=== PATIENT | male | born 1935 | race Caucasian/White ===

== ENCOUNTER 2024-11-16 22:47 | Emergency (ER) | payer OTHER, SELFPAY ==
[2024-11-16 22:49] VITALS: BP 169/96
[2024-11-16 23:06] LABS: % Basophils 0.2 % (0-2); % Eosinophils 0.2 % (0-6); % Immature Granulocytes 0.5 % (0-0.5); % Monocytes 3.2 % (1.7-9.3); % Neutrophils 91.9 % (42.2-75.2); Absolute Immature Granulocytes 0.1 10^3/uL (0-0.05); Absolute Lymphocytes 0.4 10^3/uL (1.2-3.4); Absolute Monocytes 0.3 10^3/uL (0.1-0.6); Absolute Neutrophils 9.9 10^3/uL (1.4-6.5); Hematocrit 44.2 % (39.0-52.0); Hemoglobin 14.3 g/dL (13.0-18.0); Mean Corp Hgb Conc. 32.4 g/dL (33.0-37.0); Mean Corpuscular Hgb 32.4 pg (27.0-31.0); Mean Corpuscular Volume 100.2 fL (80.0-94.0); Mean Platelet Volume 9.2 fL (7.4-10.4); Nucleated Red Blood Cells % 0 % (-); Platelet Count 223 10^3/uL (130-400); Red Blood Cell Count 4.41 10^6/uL (4.70-6.10); Red Cell Dist. Width 13.9 % (11.5-14.5); White Blood Cell Count 10.8 10^3/uL (4.8-10.8)
[2024-11-16 23:27] LABS: AST (SGOT) 85 U/L (17-59); Albumin 5.1 g/dl (3.5-5.0); Alkaline Phosphatase 161 U/L (38-126); Blood Urea Nitrogen 22 mg/dl (9-20); Calcium 9.7 mg/dl (8.4-10.2); Carbon Dioxide 18 mmol/L (22-30); Chloride 104 mmol/L (98-107); Glucose 274 mg/dl (70-99); Sodium 143 mmol/L (135-145); Total Bilirubin 2.3 mg/dl (0.2-1.3); Total Protein 8.3 g/dl (6.3-8.2); eGFR 48.04
[2024-11-16 23:29] LABS: Lipase 104 U/L (23-300)
[2024-11-16 23:48] LABS: ALT (SGPT) 61 U/L (0-50)
--- NOTE | 2024-11-17 01:07 | ED.GENMED ---
History of Present Illness
General
Chief Complaint: Abdominal Pain
Source: patient, records, family, previous radiology exam and previous hospital records
Exam Limitations: none
Time Seen by Provider: 11/17/24 00:42
Nursing documentation reviewed up to this point in time: agreed with
History of Present Illness
History of Present Illness:
89-year-old male presents with abdominal pain nausea vomiting diarrhea onset around 3-4 this afternoon described as crampy upper abdominal pain, no blood in his stool or vomit, no fever or chills, said his gallbladder out, appendicitis, denies any
problem urinating, he had meatballs for lunch
Past History
Past History
ED Past Medical History: Other (Ulcer); Negative Asthma, HTN, Hypercholesterolemia or NIDDM
ED Past Surgical History: Appendectomy, Orthopedic and Urological (Prostatectomy for Prostate CA)
Social History
Tobacco: Former smoker
Alcohol: None
Drug: None
Personal:
Living: with family
Employment: Retired
Family History
Family History: Other
Phy Exam
Physical Exam
Physical Exam:
Physical Exam
General: no apparent distress, not acutely ill
Neck: Lips are dry
Heart: s1/s2 regular rate and rhythm, no murmur. equal radial pulses.
Lungs: no acute respiratory distress. clear bilaterally
Abdomen: Mild diffuse tenderness no guarding or rebound
Neuro: alert and oriented. no focal neurological deficits
Skin: no rash
Psychiatric: well kept. interactive and cooperative
Extremities: no edema.
Course
Orders/Labs/Results
Orders:
Orders
11/16/24 22:59
Complete Blood Count/With Diff Urgent
Comprehensive Metabolic Panel Urgent
Lipase Urgent
11/17/24 01:01
Electrocardiogram (*1) Stat
Reason for Study: Abdominal Pain
EKG- Treatment ONCE
IV Insert/Care/Rem.- Treatment PRN
0.9% Sodium Chloride 1000 ml [Nss] 1,000 ml IV BOLUS
Ondansetron Injectable [Zofran] 4 mg IV NOW STA
Prochlorperazine [Compazine] 10 mg IV NOW STA
11/17/24 01:16
Troponin I Urgent
Abnormal Lab Results
11/16/24
22:59
RBC 4.41 L 10^6/uL
(4.70-6.10)
MCV 100.2 H fL
(80.0-94.0)
MCH 32.4 H pg
(27.0-31.0)
MCHC 32.4 L g/dL
(33.0-37.0)
Abs Immat Gran (auto) 0.1 H 10^3/uL
(0-0.05)
Absolute Neuts (auto) 9.9 H 10^3/uL
(1.4-6.5)
Absolute Lymphs (auto) 0.4 L 10^3/uL
(1.2-3.4)
Neutrophils % 91.9 H %
(42.2-75.2)
Lymphocytes % 4.0 L %
(20.5-51.1)
Carbon Dioxide 18 L mmol/L
(22-30)
BUN 22 H mg/dl
(9-20)
Creatinine 1.4 H mg/dL
(0.7-1.3)
Glucose 274 H mg/dl
(70-99)
Total Bilirubin 2.3 H mg/dl
(0.2-1.3)
AST 85 H U/L
(17-59)
ALT 61 H U/L
(0-50)
Alkaline Phosphatase 161 H U/L
(38-126)
Total Protein 8.3 H g/dl
(6.3-8.2)
Albumin 5.1 H g/dl
(3.5-5.0)
11/16/24 22:59
11/16/24 22:59
Vital Signs
Initial and Last Documented VS:
Initial Vital Signs
Temp Pulse Resp BP Pulse Ox
97.6 F 102 18 169/96 99
11/16/24 22:49 11/16/24 22:49 11/16/24 22:49 11/16/24 22:49 11/16/24 22:49
Last Documented Vital Signs
Temp Pulse Resp BP Pulse Ox
97.6 F 102 18 169/96 99
11/16/24 22:49 11/16/24 22:49 11/16/24 22:49 11/16/24 22:49 11/16/24 22:49
MDM/Problems Addressed
Differential Diagnosis Includes:
Enteritis norovirus Food poisoning colitis less likely ACS or obstruction
MDM/Problems Addressed:
Abdominal pain nausea vomiting diarrhea
Chronic conditions affecting care: DM and Previous abdomnial surgery
Acute Exacerbation and/or Progression of Chronic Illness: DM and Previous abdomnial surgery
*Critical Care Note
Total Time (30-74mins, 75-104mins- exclusive of procedures): Not Applicable
Update Note
Update Note:
Update labs are noted he is only been sick for few hours, did eat meatballs, he is status post cholecystectomy, will start on IV fluids check EKG troponin antiemetics PPI serial abdominal exams
245, patient states he is feeling better his abdomen is soft and nontender he is anxious for discharge will discharge on bland diet Zofran PPI clearly instructed return if worsening symptoms
ED Attending Note
-
Portions of this chart may have been created with voice recognition software.� Occasional wrong word or��sound alike� substitutions may have occurred due to the inherent limitations of voice recognition software.
Discharge Plan
Departure
Patient Disposition: Home (Routine Discharge)
Date of Disposition: 11/17/24
Time of Disposition: 02:42
Patient with high blood pressure during this ER visit?: No
Condition: Good
Discharge Problem:
Vomiting, Diarrhea
Instructions: Diarrhea in teens and adults, Constipation, Adult (DC), Nausea and Vomiting, Adult (DC)
Prescriptions:
New
ondansetron 4 mg tablet,disintegrating
4 mg PO Q8H PRN (Reason: nausea and vomiting) Qty: 14 0RF
pantoprazole [Protonix] 40 mg tablet,delayed release (DR/EC)
40 mg PO DAILY Qty: 20 0RF
No Action
Jardiance 10 MG tablet
10 mg PO DAILY Qty: 30 0RF
pantoprazole 40 MG tablet,delayed release (DR/EC)
40 mg PO DAILY Qty: 30 0RF
pravastatin 40 MG tablet
40 mg PO DAILY
furosemide 20 MG tablet
20 mg PO DAILY
aspirin 81 MG tablet,delayed release (DR/EC)
81 mg PO DAILY Qty: 30 0RF
tramadol 50 mg tablet
50 mg PO TID PRN (Reason: whitney) Qty: 10 0RF
diphenhydramine HCl 25 mg capsule
25 mg PO HS PRN (Reason: sleep) Qty: 7 0RF
Referrals:
Zachary Arrington DO [Family Provider] - Next open appointment
Activity Restrictions/Additional Instructions:
Return to the ER for worsening symptoms or any other concerns
Interventions
Interventions:
*Risk Screen - Suicide Last Done: 11/16/24 22:49
*General Assessment Last Done: 11/16/24 22:49
*Neglect/Abuse Screening Last Done: 11/16/24 22:49
Discharge Date and Time
Print Language: MAORI
[2024-11-17] MEDS: NSS 1000 IV (01:15)
[2024-11-17] MEDS: ZOFRAN 4 MG IV (01:15)
[2024-11-17] MEDS: COMPAZINE 10 MG IV (01:15)
[2024-11-17 01:51] LABS: Troponin I < 0.012 ng/ml
[2024-11-17 02:00] VITALS: BP 164/78
== END 2024-11-17 02:55 | disposition home or self-care (01) ==
LOC: EMR 22:47
PROVIDERS: Emergency Medicine; EMERGENCY PHYSICIAN Emergency Medicine; FAMILY PHYSICIAN Family Medicine
DX: R11.2 Nausea with vomiting, unspecified (principal); R19.7 Diarrhea, unspecified; Z87.891 Personal history of nicotine dependence
CPT/HCPCS: 99284; 96374; 96375; 96361; 80053; 83690; 84484; 85025; 93005

== ENCOUNTER 2025-01-03 16:19 | Inpatient (IN) | payer OTHER, SELFPAY ==
[2025-01-03] VITALS (8 sets, daily range): BP systolic 93–161; BP diastolic 50–120; BMI 28.4; BMI 26.1
[2025-01-03 12:39] LABS: % Basophils 0.2 % (0-2); % Eosinophils 1.6 % (0-6); % Immature Granulocytes 0.3 % (0-0.5); % Lymphocytes 10.4 % (20.5-51.1); % Monocytes 8.9 % (1.7-9.3); % Neutrophils 78.6 % (42.2-75.2); Absolute Eosinophils 0.1 10^3/uL (0-0.7); Absolute Lymphocytes 0.7 10^3/uL (1.2-3.4); Absolute Monocytes 0.6 10^3/uL (0.1-0.6); Absolute Neutrophils 4.9 10^3/uL (1.4-6.5); Hematocrit 38.3 % (39.0-52.0); Hemoglobin 12.5 g/dL (13.0-18.0); Mean Corp Hgb Conc. 32.6 g/dL (33.0-37.0); Mean Corpuscular Hgb 32.4 pg (27.0-31.0); Mean Corpuscular Volume 99.2 fL (80.0-94.0); Mean Platelet Volume 9.2 fL (7.4-10.4); Nucleated Red Blood Cells % 0 % (-); Platelet Count 131 10^3/uL (130-400); Red Blood Cell Count 3.86 10^6/uL (4.70-6.10); Red Cell Dist. Width 14.5 % (11.5-14.5); White Blood Cell Count 6.3 10^3/uL (4.8-10.8)
[2025-01-03 12:50] LABS: ALT (SGPT) 34 U/L (0-50); AST (SGOT) 57 U/L (17-59); Albumin 4.5 g/dl (3.5-5.0); Alkaline Phosphatase 137 U/L (38-126); Blood Urea Nitrogen 20 mg/dl (9-20); Calcium 8.9 mg/dl (8.4-10.2); Carbon Dioxide 26 mmol/L (22-30); Chloride 103 mmol/L (98-107); Glucose 177 mg/dl (70-99); Potassium 4.4 mmol/L (3.5-5.1); Sodium 141 mmol/L (135-145); Total Bilirubin 2.2 mg/dl (0.2-1.3); Total Protein 7.4 g/dl (6.3-8.2); eGFR 57.81
[2025-01-03 13:01] LABS: Troponin I < 0.012 ng/ml
--- NOTE | 2025-01-03 14:12 | ED.GENMED ---
History of Present Illness
General
Chief Complaint: Cough
Source: patient and family
Time Seen by Provider: 01/03/25 14:03
History of Present Illness
History of Present Illness:
89-year-old male with past medical history of hypertension, hyperlipidemia, [id number] diabetes, previous prostate cancer presenting to the ER with his 2 sons for evaluation of a cough that has been ongoing for the last 3 weeks, gradually
worsening, sons noting that patient will be dyspneic on minimal exertion which is not typical for him. Patient states that outside of the cough and shortness of breath with exertion he has no other symptoms including fevers, chills, rigors, chest
pain, palpitations, pleurisy, hemoptysis, lower extremity edema, abdominal pain or any other concerns. He has not been on any medications for this cough nor has he taken any medications [id number]. Patient does note about 2 weeks ago he was
in [place] and symptoms started while there, no sick contacts otherwise.
Past History
Past History
ED Past Medical History: Cancer, HTN, Hypercholesterolemia, NIDDM and Other (Ulcer); Negative Asthma
ED Past Surgical History: Appendectomy, Orthopedic and Urological (Prostatectomy for Prostate CA)
Social History
Tobacco: Former smoker
Alcohol: None
Drug: None
Personal:
Living: with family
Employment: Retired
Family History
Family History: Other
Review of Systems
Review of Systems
All Other Systems: ROS reviewed and negative except as documented in HPI and ROS
Phy Exam
Physical Exam
Physical Exam:
GENERAL: Alert , in no apparent distress
EYE: conjunctiva clear
NECK: Supple
ENT: o/p clr, mmm.
CARDIAC: Regular rate and rhythm
LUNGS: Scattered end expiratory phase wheeze within the posterior lung mccord, rhonchorous cough, mildly increased respiratory rate but otherwise speaking full sentences and in no acute respiratory distress. Harsh cough intermittently during the
exam
NEUROLOGICAL: Alert and oriented
SKIN: Warm and dry, skin intact.
MUSCULOSKELETAL: well perfused. No edema
PSYCH: Normal and appropriate interaction.
Scores
Heart Failure Risk
Heart Failure Risk Score: Not Applicable
Heart Score for Chest Pain Patients
STEMI patient?: Not applicable
Withdrawal Assessment of Alcohol
Withdrawal Assessment Completed?: Not applicable
Course
Orders/Labs/Results
Orders:
Orders
01/03/25 12:29
Electrocardiogram (*1) Urgent
Reason for Study: Shortness of Breath
EKG- Treatment ONCE
CXR2 [CR Chest - 2 Views ] Urgent
Comment:
Reason For Exam: cough with sob for couple wks
01/03/25 12:31
Complete Blood Count/With Diff Urgent
Comprehensive Metabolic Panel Urgent
NT-proBNP Urgent
Comment: PRO BNP ADDED ON BY FLOOR 2:10PM 01-03-25
Troponin I Urgent
01/03/25 14:10
Ipratropium/Albuterol Sulfate [Duoneb] 3 ml INH R NOW ONE
01/03/25 14:11
Add On- LAB Urgent
Tests Added?: pro BNP
01/03/25 15:20
IV Insert/Care/Rem.- Treatment PRN
Azithromycin [Zithromax] 500 mg PO NOW STA
CefTRIAXone [Rocephin] 1,000 mg IV NOW STA
MethylPREDNISolone PF [Solu-Medrol Pf] 40 mg IV NOW STA
01/03/25 15:25
COVID-19 Antigen Urgent
Source: Nasal Swab
Influenza A+B Rapid Molecular Urgent
MARA Source: Nasal Swab
Specimen Description:
01/03/25 15:36
Procalcitonin Routine
PCT Algorithmm Indication: Respiratory
Abnormal Lab Results
01/03/25
12:31
RBC 3.86 L 10^6/uL
(4.70-6.10)
Hgb 12.5 L g/dL
(13.0-18.0)
Hct 38.3 L %
(39.0-52.0)
MCV 99.2 H fL
(80.0-94.0)
MCH 32.4 H pg
(27.0-31.0)
MCHC 32.6 L g/dL
(33.0-37.0)
Absolute Lymphs (auto) 0.7 L 10^3/uL
(1.2-3.4)
Neutrophils % 78.6 H %
(42.2-75.2)
Lymphocytes % 10.4 L %
(20.5-51.1)
Glucose 177 H mg/dl
(70-99)
Total Bilirubin 2.2 H mg/dl
(0.2-1.3)
Alkaline Phosphatase 137 H U/L
(38-126)
01/03/25 12:31
01/03/25 12:31
Vital Signs
Initial and Last Documented VS:
Initial Vital Signs
Temp Pulse Resp BP Pulse Ox
98.7 F 96 18 161/120 98
01/03/25 12:25 01/03/25 12:25 01/03/25 12:25 01/03/25 12:25 01/03/25 12:25
Last Documented Vital Signs
Temp Pulse Resp BP Pulse Ox
98.7 F 87 18 93/67 97
01/03/25 12:25 01/03/25 15:00 01/03/25 15:00 01/03/25 15:00 01/03/25 15:18
MDM/Problems Addressed
Differential Diagnosis Includes:
COVID, flu, bronchitis, pneumonia, asthma/COPD PE considered given recent travel
MDM/Problems Addressed:
89-year-old male presenting the ER for evaluation of cough with some exertional dyspnea over the last 3 weeks, seems to be worsening at home but admittedly has not attempted any medications for relief. Does have a slight wheeze on my exam here.
Will treat with neb. Labs were initiated in triage and are reassuring, there is no leukocytosis, normal renal function, negative troponin. Will add on a BNP to the workup. Chest x-ray does show a suspected right lower lung pneumonia. Discussed
admission versus discharge home and patient ultimately states he would like to be discharged home. Will reassess following meds.
*Radiology
Radiology exam reviewed: preliminary read by ED provider (Suspected right midlung pneumonia)
*Pulse Oximetry
Patient hypoxic: no
*Social Organization Professor Interpretation
Rate: normal
Rhythm: sinus
*Critical Care Note
Total Time (30-74mins, 75-104mins- exclusive of procedures): Not Applicable
Patient Management
Discussion with other providers: Hospitalist and PCP
Escalation/DeEscalation of care consider admission/obs:
On reevaluation following neb treatment patient states he was feeling better however his respiratory rate remained well above 25 although he was in no acute respiratory distress. We attempted to ambulate patient in the emergency department and his
pulse ox dropped to 84% on room air so he was brought back into his room, pulse ox immediately returned back to greater than 95% at rest. Given his continued tachypnea, hypoxia with ambulation and harsh cough, will admit for IV antibiotics, steroid
and supportive care breathing treatments. I also notified patient's primary care provider of this workup. Hospitalist team accepts for admission.
ED Attending Note
-
Portions of this chart may have been created with voice recognition software.� Occasional wrong word or��sound alike� substitutions may have occurred due to the inherent limitations of voice recognition software.
Discharge Plan
Departure
Patient Disposition: Admit
Date of Disposition: 01/03/25
Time of Disposition: 15:24
Presentation/result/management discussed w/ accepting MD/DO: Hospitalist
Discharge Problem:
Pneumonia
Prescriptions:
No Action
pantoprazole 40 MG tablet,delayed release (DR/EC)
40 mg PO DAILY Qty: 30 0RF
pravastatin 40 MG tablet
40 mg PO QPM
furosemide 20 MG tablet
20 mg PO DAILY
aspirin 81 MG tablet,delayed release (DR/EC)
81 mg PO DAILY Qty: 30 0RF
Jardiance 25 mg Tablet
25 mg PO DAILY
glimepiride 1 mg Tablet
1 mg PO DAILY
Referrals:
Zachary Arrington, [Family Provider] -
Interventions
Interventions:
*Risk Screen - Suicide Last Done: 01/03/25 12:25
*General Assessment Last Done: 01/03/25 13:59
*Neglect/Abuse Screening Last Done: 01/03/25 12:25
*ED- Fall Risk Assessment Last Done: 01/03/25 13:59
*ED COVID-19 Vaccine History Last Done: 01/03/25 13:59
ED- Pulmonary Assessment Last Done: 01/03/25 14:00
Discharge Date and Time
Print Language: ROMANIAN
[2025-01-03] MEDS: DUONEB 3 ML INH ×2 (14:16→18:23)
[2025-01-03 14:55] LABS: NT-proBNP 458 pg/ml
[2025-01-03] MEDS: ZITHROMAX 500 MG PO (15:37)
[2025-01-03] MEDS: SOLU-MEDROL PF 40 MG IV (15:40)
[2025-01-03] MEDS: ROCEPHIN 1000 MG IV (15:40)
--- NOTE | 2025-01-03 15:42 | HPS.HSE ---
Family Physician
-
Family Physician: Zachary Arrington
Chief Complaint
-
coug and son with minimal exertioion
History of Present Illness
89M Former smoker BiB two sons with HX HTN and DMT2 , HX Covid PNA seen at ER
- evaluation of gradually worsening of cough that has been ongoing for the last 3 weeks
- sons noting that patient will be SOB on minimal exertion which is not typical for him.
- he has not been on any medications for this cough nor has he taken any medications [id number].
- denied fevers, chills, rigors, chest pain, palpitations, pleurisy, hemoptysis, lower extremity edema, abdominal pain or any other concerns.
Patient does note about 2 weeks ago he was in [place] and symptoms started while there,
No sick contacts otherwise.
Medical History
Past Medical History
Past Medical History: Reports HTN, NIDDM and Other (Covid PNA )
Past Surgical History: Reports Other
Social History
Tobacco: Former Smoker
Alcohol: None
Drug: None
Living: With Family
Family History
Family History: Not pertinent
Allergies / Home Medications
Allergies reflects when Allergies were last updated in [facility].
Home Medications with original date entered in [facility]
Allergy/Medication List:
Allergies
Allergy/AdvReac Type Severity Reaction Status Date / Time
No Known Allergies Allergy Verified 01/03/25 12:27
Home Medications
pantoprazole 40 mg tablet,delayed release 40 mg PO DAILY #30 tabs 04/13/20
furosemide 20 mg tablet 20 mg PO DAILY Fluid retention/Swelling 10/20/21
pravastatin 40 mg tablet 40 mg PO QPM High cholesterol 10/20/21
aspirin 81 mg tablet,delayed release 81 mg PO DAILY #30 tabs 11/01/21
empagliflozin 25 mg tablet (Jardiance) 25 mg PO DAILY 01/03/25
glimepiride 1 mg tablet 1 mg PO DAILY 01/03/25
Review of Systems
-
Constitutional: Reports No Symptoms
EENT: Reports No Symptoms
Respiratory: Reports See HPI
Cardiac: Reports No Symptoms
Abdomen/GI: Reports No Symptoms
: Reports No Symptoms
Musculoskeletal: Reports No Symptoms
Skin: Reports No Symptoms
Neurological: Reports No Symptoms
Endocrine: Reports No Symptoms
Hematologic/Lymphatic: Reports No Symptoms
Psych: Reports No Symptoms
Physical Exam
Vital Signs
Vital Signs
Temp Pulse Resp BP Pulse Ox
98.7 F 93 22 93/67 95
01/03/25 12:25 01/03/25 15:42 01/03/25 15:42 01/03/25 15:42 01/03/25 15:42
Physical Exam
General: Well Developed, Well Nourished and No Apparent Distress
HEENT: NormoCephalic, Moist mucous membranes and Atraumatic
Respiratory: Other (Scattered e wheeze mildly increased respiratory rate speaking full sentences and in no acute respiratory distress. Harsh cough intermittently during the exam)
Cardiac: S1/S2 and Regular Rhythm; No Murmur or Rub
GI: Soft, Non Tender, Non Distended and Normal Bowel Sounds; No Organomegaly
Rectal: Deferred by Provider
Musculoskeletal: No Clubbing, No Cyanosis and No Edema
Skin: No Rash
Neuro: Nonfocal/grossly intact
Laboratory Results
-
01/03/25 12:31
01/03/25 12:31
Laboratory Results
Total Bilirubin 2.2 mg/dl (0.2-1.3) H 01/03/25 12:31
AST 57 U/L (17-59) 01/03/25 12:31
ALT 34 U/L (0-50) 01/03/25 12:31
Alkaline Phosphatase 137 U/L (38-126) H 01/03/25 12:31
Troponin I < 0.012 ng/ml 01/03/25 12:31
Data Reviewed
-
Diagnostic Radiology: Image Personally Visualized and interpreted
Medical Tests (Nuc Med, Echo, EKG etc): Report Reviewed by me
Lab Data: Labs Reviewed by me
Old Records: Reviewed
Impression/Plan
-
Selected Entries
01/03/25
12:25 01/03/25
14:17
Temp 98.7 F
Pulse 96
Blood pressure 161/120
SaO2 98 94
Oxygen Mode of Delivery Room air
Lab
11/16/24 01/03/25 01/03/25
22:59 12:31 15:25
WBC 6.3
Hgb 12.5 L
Plt Count 131
Sodium 141
Creatinine 1.4 H 1.2
eGFR 48.04 57.81
Glucose 177 H
Total Bilirubin 2.2 H
Troponin I < 0.012
Bxr-E-Dkuxijdrnox Pept 458
SARS-CoV-2 Antigen Pending
Pending PCT
My prelim review on CXR : PNA at [facility] ?
EKG
NORMAL SINUS RHYTHM
LEFT AXIS DEVIATION
SEPTAL INFARCT (CITED ON OR BEFORE 14-NOV-2022)
ABNORMAL ECG
WHEN COMPARED WITH ECG OF 17-NOV-2024 01:10,
NO SIGNIFICANT CHANGE WAS FOUND
Last hospitalist admission: 10/20/2021 - 11/01/2021
DC DXS
1. Acute hypoxic respiratory failure.
2. Acute bilateral COVID-19 pneumonia.
3. Severe sepsis due to COVID-19 pneumonia.
4. Lactic acidosis.
5. Epistaxis.
ASSESSMENT & PLAN
PNA @ [facility] associated with cough, Mohr, exertion hypoxia and tachypneic
Acute hypoxic RI with exertional hypoxia to 84
- agree with IV CFTX and PO Zithromax
- Mucinex BID
- Antitussives PRN
- check PCT
- Supplementary O2 to keep POx > 94
Element of acute cut Bronchitis with bronchospasm
Former smoker
- IV Decadron 4 mg q12h
- DuoNebs qid and PRN
Stable CKD3
Prior baseline CR 1.3s, e GFR hi 40s ) suggest CKD 3a
Benign Hypertension
- Stable
- on MANAGER [employer] furosemide 20 mg t PO DAILY Fluid retention/Swelling
DMT2
Risk of steroid induced hyperglycemia
- on [employer]GER [employer] PO Empagliflozin 25 mg PO DAILY
- on glimepiride 1 mg DAILY
- add ISS.low
HLD
- on Pravastatin 40 mg tablet 40 mg PO QPM
GERD
- HX PUD per patient.
- Continue daily PPI
DVT Px: LMWH
Full code
IP TLM
[2025-01-03 16:11] LABS: COVID-19 Antigen Negative (Negative)
[2025-01-03 16:23] LABS: Procalcitonin 0.18 ng/ml (0.0-0.25)
[2025-01-03 18:10] LABS: Glucose - Point of Care 143 mg/dl (70-99)
--- NOTE | 2025-01-03 18:29 | PTCARENOTE ---
Pt received from ED. Walked to bed with cane. Pt AAOx3, family members @bedside say pt is forgetful @times and is [place]. Oriented to unit by this RN. Admission completed with help of family members Radha (daughter) and Maximo (son). Pt has no complaints
at this time, will continue to monitor.
[2025-01-03] MEDS: NOVOLOG FLEXPEN-LOW RESISTANCE SC (18:38)
[2025-01-03] MEDS: PRAVACHOL 40 MG PO (18:39)
[2025-01-03] MEDS: LOVENOX 40 MG SC (18:39)
[2025-01-03] MEDS: DECADRON 4 MG IV (20:11)
[2025-01-03] MEDS: MUCINEX 600 MG PO (20:11)
[2025-01-03 21:15] LABS: Glucose - Point of Care 219 mg/dl (70-99)
[2025-01-04 03:25] VITALS: BP 118/71
--- NOTE | 2025-01-04 05:59 | W.PN.HOSP.TC ---
Today's Communication/Plan
-
see a/p
Assessment / Plan
Assessment / Plan
Physical Exam
General: Well Developed, Well Nourished and No Apparent Distress
HEENT: NormoCephalic, Moist mucous membranes and Atraumatic
Respiratory: Clear to auscultation b/l
Cardiac: S1/S2 and Regular Rhythm; No Murmur or Rub
GI: Soft, Non Tender, Non Distended and Normal Bowel Sounds
Musculoskeletal: No Clubbing, No Cyanosis and No Edema
Skin: No Rash
Neuro: AOx3 conversant coherent
89M former smoker (quit 60 ys ago, smoked 11 year before quitting) HTN DM HLD CKD3 here for evaluation SOB suspect COPD exacerbation, never diagnosed with COPD before.
Acute hypoxic RI with exertional hypoxia to 84
Suspect COPD exacerbation, PNA unlikely with unremarkable PCT
- empiric IV CFTX discontinued
- Pulm eval appreciated azithromycin continued 3 days
-CT chest appreciated, PE ruled out, stable 0.4 cm rt lung apex nodule, bibasilar atelectasis/scarring, mild cardiomegaly, coronary artery calcifications.
- Mucinex BID
- Antitussives PRN
- Supplementary O2 to keep POx > 94
- IV Decadron 4 mg q12h
- DuoNebs qid and PRN
Stable CKD3
monitor
Benign Hypertension
- Stable
- on JAMMER [employer]OOKER furosemide 20 mg t PO DAILY Fluid retention/Swelling
DMT2
Risk of steroid induced hyperglycemia
- on JAMMER HOOKER PO Empagliflozin 25 mg PO DAILY
- on glimepiride 1 mg DAILY
- cont low dose sliding scale
HLD
- on Pravastatin 40 mg tablet 40 mg PO QPM
GERD
- HX PUD per patient.
- Continue daily PPI
PT eval pending
DVT Px: LMWH
Full code
IP TLM
discussed with patient and patient's daughter Radha
I spent a total of 50 minutes with the patient or on the floor. More than 50% of this time involved counseling and coordination of care.
Anticipated Discharge: 24 - 48 hours
Subjective/Interval History
-
Date of Service: January 04, 2025
Reports overall feeling well though exertional dyspnea persists, significantly improved from prior to admission.
Objective Data
-
Labs:
Laboratory Results
01/04/25
06:00
WBC Pending
Hgb Pending
Hct Pending
Plt Count Pending
Sodium Pending
Potassium Pending
Chloride Pending
Carbon Dioxide Pending
BUN Pending
Creatinine Pending
Glucose Pending
Calcium Pending
Total Bilirubin Pending
AST Pending
ALT Pending
Alkaline Phosphatase Pending
Vital Signs:
Vital Signs
Temp Pulse Resp BP Pulse Ox
98.0 F 82 16 118/71 97
01/04/25 03:25 01/04/25 03:25 01/04/25 03:25 01/04/25 03:25 01/04/25 03:25
I&O
01/02/25 01/03/25 01/04/25
06:59 06:59 06:59
Intake Total 900 / 900
Balance 900 / 900
[2025-01-04 06:00] VITALS: BMI 25.7
[2025-01-04 07:11] LABS: Hematocrit 41.4 % (39.0-52.0); Hemoglobin 13.3 g/dL (13.0-18.0); Mean Corp Hgb Conc. 32.1 g/dL (33.0-37.0); Mean Corpuscular Hgb 32.1 pg (27.0-31.0); Mean Platelet Volume 9.2 fL (7.4-10.4); Platelet Count 152 10^3/uL (130-400); Red Blood Cell Count 4.14 10^6/uL (4.70-6.10); Red Cell Dist. Width 14.3 % (11.5-14.5); White Blood Cell Count 7.9 10^3/uL (4.8-10.8)
[2025-01-04] MEDS: DUONEB 3 ML INH ×4 (07:11→19:09)
[2025-01-04 07:29] VITALS: BP 118/68
[2025-01-04 07:37] LABS: AST (SGOT) 63 U/L (17-59); Albumin 4.3 g/dl (3.5-5.0); Alkaline Phosphatase 117 U/L (38-126); Blood Urea Nitrogen 27 mg/dl (9-20); Calcium 9.3 mg/dl (8.4-10.2); Carbon Dioxide 25 mmol/L (22-30); Chloride 104 mmol/L (98-107); Estimated Creatinine Clearance 40 ml/min; Glucose 150 mg/dl (70-99); Potassium 4.1 mmol/L (3.5-5.1); Sodium 145 mmol/L (135-145); Total Bilirubin 1.6 mg/dl (0.2-1.3); Total Protein 7.5 g/dl (6.3-8.2); eGFR 57.81
[2025-01-04 07:42] LABS: Glucose - Point of Care 193 mg/dl (70-99)
[2025-01-04 07:57] LABS: ALT (SGPT) 48 U/L (0-50)
[2025-01-04] MEDS: NOVOLOG FLEXPEN-LOW RESISTANCE 1 UNITS SC ×2 (07:58→14:30)
[2025-01-04] MEDS: AMARYL 1 MG PO (07:59)
[2025-01-04] MEDS: PROTONIX 40 MG PO (07:59)
[2025-01-04] MEDS: LASIX 20 MG PO (07:59)
[2025-01-04] MEDS: ASPIR LOW (ENTERIC COATED) 81 MG PO (08:00)
[2025-01-04] MEDS: FARXIGA 10 MG PO (08:00)
[2025-01-04] MEDS: MUCINEX 600 MG PO ×2 (08:00→19:53)
[2025-01-04] MEDS: ZITHROMAX 500 MG PO (08:02)
[2025-01-04] MEDS: DECADRON 4 MG IV ×2 (08:02→19:53)
[2025-01-04 10:43] LABS: Glycohemoglobin (HgbA1c) 6.3 % (4.0-5.6)
[2025-01-04 10:52] VITALS: BP 119/64
[2025-01-04] MEDS: TYLENOL 1000 MG PO (11:04)
[2025-01-04 11:39] LABS: Glucose - Point of Care 169 mg/dl (70-99)
--- NOTE | 2025-01-04 12:14 | CON.PUL ---
Consultation
Consultation Request
Date/Time Consultation Requested: 01/04/2025
Date/Time Consultation Performed: 01/04/2025
Requesting Provider: Christiano Eric
Performing Provider: Godwin Rivers
Reason for Consultation: Cough, shortness of breath
Medical History
-
Chief Complaint: Shortness of breath
History of Present Illness:
Patient is a very pleasant 89-year-old gentleman with no known pulmonary disease who presents with cough going on for few weeks now. Patient is reporting some exertional dyspnea going on for many months with worse cough over the last 2 to 3 weeks.
Patient does not recall any sick contacts but reports that cough has been fairly worse over the last 3 weeks. He has been at times bringing small amount of expectoration without any hemoptysis. No pleuritic chest discomfort reported. No runny
nose, sore throat or postnasal drip reported. Patient traveled from [place] by road and was sitting in the car for multiple hours every day last week but reports that his symptoms have been going on before the trip.
Patient also was noted to have bronchospasm and has been treated with steroids and bronchodilators. Pulmonary consultation was requested for further recommendations.
Past Medical History: Reports HTN, NIDDM and Other (Covid PNA )
Past Surgical History: Reports Other
Social History
Tobacco: Former Smoker
Alcohol: None
Drug: None
Living: With Family
Family History
Family History: Not pertinent
Allergies / Home Medications
Allergies / Home Medications
Allergies
Allergy/AdvReac Type Severity Reaction Status Date / Time
No Known Allergies Allergy Verified 01/03/25 12:27
Home Medications
�Medication �Instructions �Recorded �Confirmed �Last Taken �Type
furosemide 20 mg tablet 20 mg PO DAILY Fluid 10/20/21 01/03/25 01/03/25 History
retention/Swelling
pravastatin 40 mg tablet 40 mg PO QPM High cholesterol 10/20/21 01/03/25 01/02/25 History
aspirin 81 mg tablet,delayed 81 mg PO DAILY #30 tabs 11/01/21 01/03/25 01/03/25 Rx
release
empagliflozin 25 mg tablet 25 mg PO DAILY 01/03/25 01/03/25 01/03/25 History
(Jardiance)
glimepiride 1 mg tablet 1 mg PO DAILY 01/03/25 01/03/25 01/03/25 History
pantoprazole 40 mg tablet,delayed 40 mg PO QPM 01/03/25 01/03/25 01/03/25 History
release
Review of Systems
-
Hematologic/Lymphatic: Other (All 14 systems reviewed and negative except as stated above in the history of present illness.)
Vitals / Labs / Diagnostic Testing
Vital Signs
Temp Pulse Resp BP Pulse Ox
99 F 84 16 119/64 97
01/04/25 10:52 01/04/25 12:06 01/04/25 12:06 01/04/25 10:52 01/04/25 10:52
Lab Data
01/04/25 06:43
01/04/25 06:43
Microbiology
01/03/25 21:02 Urine Legionella Urinary Antigen - Final
Negative for Legionella pneumophila Serogroup 1 antigen.
A negative result does not rule out the possiblity of
Legionella infection due to other serogroups or species of
Legionella. Clinical correlation is recommended.
01/03/25 21:02 Urine Streptococcus pneumoniae Antigen (M - Final
Negative for Streptococcus pneumoniae antigen.
A negative result does not exclude infection with
Streptococcus pneumoniae. Clinical correlation is
recommended.
01/03/25 15:36 Nasal Swab Influenza Types A & B (JUDSON) - Final
Negative for Influenza A & B, NAAT
Negative results must be combined with clinical observations
and patient history.
Nucleic Acid Amplification test (NAAT)performed on the
[employer] platform.
Diagnostic Testing:
Physical Exam
-
HEENT: Normocephalic
Cardiovascular: Regular Rhythm
Respiratory: Clear and Non-Labored Respirations
GI: Soft and Non Distended
Neurology: Awake and Alert
Skin: Warm
General: Comfortable
Assessment
-
#1. Acute Bronchitis with suspected hyperactive airway disease. ?COPD. Remote h/p smoking in the past
-Continue DuoNeb 4 times daily.
-Add budesonide nebulized twice a day
-Azithromycin p.o. 500 mg daily for 3 days
-Considering recent travel from [place] by road with prolonged sitting in the car every day, recommend CT PE to evaluate for any underlying pulmonary embolism
#2. Pulmonary Nodule
-Patient had incidental finding of 4 mm nodule on the CT chest in 2021
-Follow-up CT pending
#3. Mild basilar fibrotic changes
Minimal basilar scarring noted on the CT scan in the past, not consistent with UIP pattern
-Await follow-up CT chest
-Patient will need pulmonary function testing with lung volumes DLCO assessment and 6-minute walk test as outpatient
-Will arrange outpatient pulmonary follow-up
#4. h/o Smoking
-Patient quit smoking about 60 years ago.
#5. Recent long travel from [place]. Reportedly symptoms started before the trip, involved multiple hours of sitting in the car
-CT PE elevated
Influenza screen, Legionella and Pneumococcal Ag negative
Data:
CXR 12/2024: Subtle lower lobe fibrotic changes, otherwise unremarkable
ECHO 03/2021: Normal left ventricular systolic function. Normal RV
Left ventricular ejection fraction is 60-65%
Mild mitral regurgitation.
Mild aortic regurgitation.
Compared to the previous echo 11/13/18 there is no significant change.
CT Chest 09/2022: 1. There is no CT evidence of pulmonary embolism.
2. There is a new pulmonary nodule in the right upper lobe. (4 mm)
3. there are diffuse changes of COPD and probable fibrosis/scarring in the lung bases.
Total time spent on this consultation/encounter _60___ minutes which includes review of history, physical exam, medications, laboratory data, personal review of imaging, extensive review of outpatient records, discussion with care team and
respiratory therapy.
--- NOTE | 2025-01-04 12:26 | CM ---
Patient seen at bedside
Dx: PNA, exertional hypoxia, acute bronchitis
PMH: HTN, DM
IA completed
Lives in a multi-story home with son, 2 steps to enter, has stair glide
PLOF: Independent uses a cane
DME: cane, walker, stair glide, shower chair
Denies VN/Rehab
PT to eval
PCP: Zachary Arrington
Pharmacy: [address], [place] (In [employer])
PLAN: Await PT eval, CM to follow for needs.
[2025-01-04 14:36] VITALS: BP 146/72
[2025-01-04 16:58] LABS: Glucose - Point of Care 214 mg/dl (70-99)
[2025-01-04] MEDS: LOVENOX 40 MG SC (17:07)
[2025-01-04] MEDS: PRAVACHOL 40 MG PO (17:07)
[2025-01-04] MEDS: NOVOLOG FLEXPEN-LOW RESISTANCE 2 UNITS SC (17:08)
[2025-01-04] MEDS: PULMICORT 0.5 MG INH (19:09)
[2025-01-04 19:15] VITALS: BP 120/64
[2025-01-04 21:29] LABS: Glucose - Point of Care 209 mg/dl (70-99)
[2025-01-04 23:15] VITALS: BP 117/63
[2025-01-05 03:00] VITALS: BP 138/76
[2025-01-05 06:00] VITALS: BMI 25.7
[2025-01-05 07:02] LABS: Hematocrit 34.6 % (39.0-52.0); Hemoglobin 11.6 g/dL (13.0-18.0); Mean Corp Hgb Conc. 33.5 g/dL (33.0-37.0); Mean Corpuscular Volume 98.3 fL (80.0-94.0); Red Blood Cell Count 3.52 10^6/uL (4.70-6.10); Red Cell Dist. Width 14.6 % (11.5-14.5); White Blood Cell Count 6.7 10^3/uL (4.8-10.8)
[2025-01-05 07:04] LABS: Blood Urea Nitrogen 34 mg/dl (9-20); Carbon Dioxide 27 mmol/L (22-30); Chloride 104 mmol/L (98-107); Estimated Creatinine Clearance 40 ml/min; Glucose 153 mg/dl (70-99); Magnesium 2.6 mg/dl (1.6-2.3); Phosphorus 3.6 mg/dl (2.5-4.5); Potassium 4.8 mmol/L (3.5-5.1); Sodium 141 mmol/L (135-145); eGFR 57.81
[2025-01-05 07:16] VITALS: BP 102/69
--- NOTE | 2025-01-05 07:17 | W.PN.HOSP.TC ---
Today's Communication/Plan
-
see a/p
Assessment / Plan
Assessment / Plan
Physical Exam
General: Well Developed, Well Nourished and No Apparent Distress
HEENT: NormoCephalic, Moist mucous membranes and Atraumatic
Respiratory: Clear to auscultation b/l
Cardiac: S1/S2 and Regular Rhythm; No Murmur or Rub
GI: Soft, Non Tender, Non Distended and Normal Bowel Sounds
Musculoskeletal: No Clubbing, No Cyanosis and No Edema
Skin: No Rash
Neuro: AOx3 conversant coherent
89M former smoker (quit 60 ys ago, smoked 11 year before quitting) HTN DM HLD CKD3 here for evaluation SOB suspect COPD exacerbation, never diagnosed with COPD before.
Acute hypoxic RI with exertional hypoxia to 84
Suspect COPD exacerbation, PNA unlikely with unremarkable PCT
- empiric IV CFTX discontinued
- Pulm eval appreciated azithromycin 3 days completed, cont Budesonide Duoneb
-CT chest appreciated, PE ruled out, stable 0.4 cm rt lung apex nodule, bibasilar atelectasis/scarring, mild cardiomegaly, coronary artery calcifications.
- Mucinex BID
- Antitussives PRN
- Supplementary O2 to keep POx > 94
- IV Decadron 4 mg q12h tapered to Prednisone 30 mg daily short taper planned
- DuoNebs qid and PRN
-Check ECHO
Stable CKD3
monitor
Hypertension
- Stable
- on PAD TUFTER furosemide 20 mg PO DAILY Fluid retention/Swelling
DMT2
Risk of steroid induced hyperglycemia
- on PAD TUFTER PO Empagliflozin 25 mg PO DAILY
- on glimepiride 1 mg DAILY
- cont low dose sliding scale
HLD
- on Pravastatin 40 mg tablet 40 mg PO QPM
GERD
- HX PUD per patient.
- Continue daily PPI
PT eval appreciated Home services
DVT Px: LMWH
Full code
IP TLM
I spent a total of 45 minutes with the patient or on the floor. More than 50% of this time involved counseling and coordination of care.
Anticipated Discharge: Within 24 hours
Subjective/Interval History
-
Date of Service: January 05, 2025
cough exertional dyspnea persists
Objective Data
-
Labs:
Laboratory Results
01/05/25
06:17
WBC 6.7
Hgb 11.6 L
Hct 34.6 L
Plt Count Pending
Sodium 141
Potassium 4.8
Chloride 104
Carbon Dioxide 27
BUN 34 H
Creatinine 1.2
Glucose 153 H
Calcium 9.0
Vital Signs:
Vital Signs
Temp Pulse Resp BP Pulse Ox
97.4 F 86 16 138/76 97
01/05/25 03:00 01/05/25 03:00 01/05/25 03:00 01/05/25 03:00 01/05/25 03:00
I&O
01/04/25 01/05/25 01/06/25
06:59 06:59 06:59
Intake Total 1979 1280 / 1280
Balance 1979 1280 / 1280
[2025-01-05] MEDS: DUONEB 3 ML INH ×3 (07:25→19:23)
[2025-01-05] MEDS: PULMICORT 0.5 MG INH ×2 (07:25→19:23)
[2025-01-05 07:55] LABS: Glucose - Point of Care 145 mg/dl (70-99)
[2025-01-05] MEDS: NOVOLOG FLEXPEN-LOW RESISTANCE SC (08:12)
[2025-01-05] MEDS: ZITHROMAX 500 MG PO (08:13)
[2025-01-05] MEDS: PROTONIX 40 MG PO (08:13)
[2025-01-05] MEDS: ASPIR LOW (ENTERIC COATED) 81 MG PO (08:13)
[2025-01-05] MEDS: FARXIGA 10 MG PO (08:13)
[2025-01-05] MEDS: AMARYL 1 MG PO (08:15)
[2025-01-05] MEDS: LASIX 20 MG PO (08:15)
[2025-01-05] MEDS: MUCINEX 600 MG PO ×2 (08:15→19:52)
[2025-01-05] MEDS: DECADRON 4 MG IV (08:16)
--- NOTE | 2025-01-05 08:25 | W.PN.PUL3 ---
Today's Communication / Plan
-
- DC Solu-Medrol, switch to prednisone 30 mg daily
-Continue budesonide and DuoNeb
-DC azithromycin after completing 3 days of therapy
Assessment
-
89-year-old gentleman with no known pulmonary disease who presents with cough going on for few weeks now. Patient is reporting some exertional dyspnea going on for many months with worse cough over the last 2 to 3 weeks. Patient does not recall any
sick contacts but reports that cough has been fairly worse over the last 3 weeks. He has been at times bringing small amount of expectoration without any hemoptysis. No pleuritic chest discomfort reported. No runny nose, sore throat or postnasal
drip reported. Patient traveled from [place] by road and was sitting in the car for multiple hours every day last week but reports that his symptoms have been going on before the trip.
Patient also was noted to have bronchospasm and has been treated with steroids and bronchodilators. Pulmonary consultation was requested for further recommendations.
Assessment and plan:
#1. Acute Bronchitis with suspected hyperactive airway disease. ?COPD. Remote h/o smoking in the past
-Continue DuoNeb 4 times daily, Budesone and 3 days of Azithtomycin 500 mg daily
-CT without evidence of PE or pneumonia
#2. Pulmonary Nodule
-Patient had incidental finding of 4 mm nodule on the CT chest in 2021
-Stable on current CT
-No further work up needed
#3. Mild basilar fibrotic changes
-Minimal basilar scarring noted on the CT scan in the past, not consistent with UIP pattern
-Essentially unchanged on recent CT
-Patient will need pulmonary function testing with lung volumes DLCO assessment and 6-minute walk test as outpatient
-Will arrange outpatient pulmonary follow-up
#4. h/o Smoking
-Patient quit smoking about 60 years ago.
#5. Recent long travel from [place]. Reportedly symptoms started before the trip, involved multiple hours of sitting in the car
-CT PE negative for PE
Influenza screen, Legionella and Pneumococcal Ag negative
Data:
CT Chest 12/2024: No findings to confirm central pulmonary embolism.
0.4 cm right lung apex nodule, stable for greater than 2 years, considered benign
Bibasilar subsegmental atelectasis and/or scarring
Mild cardiomegaly, unchanged. Coronary artery calcifications again suspected.
CXR 12/2024: Subtle lower lobe fibrotic changes, otherwise unremarkable
ECHO 03/2021: Normal left ventricular systolic function. Normal RV
Left ventricular ejection fraction is 60-65%
Mild mitral regurgitation.
Mild aortic regurgitation.
Compared to the previous echo 11/13/18 there is no significant change.
CT Chest 09/2022: 1. There is no CT evidence of pulmonary embolism.
2. There is a new pulmonary nodule in the right upper lobe. (4 mm)
3. there are diffuse changes of COPD and probable fibrosis/scarring in the lung bases.
Total time spent on this consultation/encounter 30___ minutes which includes review of history, physical exam, medications, laboratory data, personal review of imaging, extensive review of outpatient records, discussion with care team and
respiratory therapy.
Subjective Data
-
Date of Service:
Date of Service: January 05, 2025
Subjective:
Patient reports feeling only marginally better.
Review of Systems
Genitourinary: Other (All 14 systems reviewed and negative except as stated above in the history of present illness., continued dry cough)
Objective Data
Data Reviewed
Vital Signs / I&O / Oxygen:
Vital Signs
Temp Pulse Resp BP Pulse Ox
98.2 F 69 19 102/64 96
01/05/25 07:16 01/05/25 08:15 01/05/25 07:26 01/05/25 08:15 01/05/25 07:26
Intake and Output
01/04/25 01/05/25 01/06/25
06:59 06:59 06:59
Intake Total 1979 1280 / 1280
Balance 1979 1280 / 1280
SaO2 96
Physical Exam
General: Comfortable
HEENT: Normocephalic
Cardiovascular: S1-S2
Respiratory: Clear, Rhonchi and Non-Labored Respirations
GI: Soft and Non Distended
Neurology: Awake and Alert
Skin: Warm
Labs/Micro/Reports
Lab Data
01/05/25 06:17
01/05/25 06:17
Microbiology
01/03/25 21:02 Urine Legionella Urinary Antigen - Final
Negative for Legionella pneumophila Serogroup 1 antigen.
A negative result does not rule out the possiblity of
Legionella infection due to other serogroups or species of
Legionella. Clinical correlation is recommended.
01/03/25 21:02 Urine Streptococcus pneumoniae Antigen (M - Final
Negative for Streptococcus pneumoniae antigen.
A negative result does not exclude infection with
Streptococcus pneumoniae. Clinical correlation is
recommended.
01/03/25 15:36 Nasal Swab Influenza Types A & B (JUDSON) - Final
Negative for Influenza A & B, NAAT
Negative results must be combined with clinical observations
and patient history.
Nucleic Acid Amplification test (NAAT)performed on the
[employer] platform.
[2025-01-05 10:36] VITALS: BP 130/67
[2025-01-05 10:58] LABS: Mean Platelet Volume 9.5 fL (7.4-10.4)
[2025-01-05 10:59] LABS: Platelet Count 119 10^3/uL (130-400)
[2025-01-05] MEDS: DELTASONE 30 MG PO (11:06)
[2025-01-05 11:35] LABS: Glucose - Point of Care 260 mg/dl (70-99)
[2025-01-05] MEDS: DUONEB INH (11:54)
[2025-01-05 12:20] VITALS: BP 144/71; PULSE 88; O2SAT 97
[2025-01-05] MEDS: NOVOLOG FLEXPEN-LOW RESISTANCE 3 UNITS SC (13:45)
--- NOTE | 2025-01-05 15:00 | CM ---
PT rec Home Health
Met with patients and options given - prefers [facility]
Referral placed in [facility]
PLAN: home with [facility]
[2025-01-05 16:00] VITALS: BP 117/62
[2025-01-05 16:41] LABS: Glucose - Point of Care 159 mg/dl (70-99)
[2025-01-05] MEDS: LOVENOX 40 MG SC (17:21)
[2025-01-05] MEDS: PRAVACHOL 40 MG PO (17:21)
[2025-01-05] MEDS: NOVOLOG FLEXPEN-LOW RESISTANCE 1 UNITS SC (17:22)
[2025-01-05 21:44] LABS: Glucose - Point of Care 206 mg/dl (70-99)
[2025-01-05 23:15] VITALS: BP 104/55
--- NOTE | 2025-01-06 06:19 | W.PN.HOSP.TC ---
Today's Communication/Plan
-
cont steroids
duoneb
pulmicort switched to symbicort
prn antitussives
Educate use nebulizer machine and symbicort (new to patient)
ENT eval
Assessment / Plan
Assessment / Plan
Physical Exam
General: Well Developed, Well Nourished and No Apparent Distress
HEENT: NormoCephalic, Moist mucous membranes and Atraumatic
Respiratory: Clear to auscultation b/l, increased hoarseness noted
Cardiac: S1/S2 and Regular Rhythm; No Murmur or Rub
GI: Soft, Non Tender, Non Distended and Normal Bowel Sounds
Musculoskeletal: No Clubbing, No Cyanosis and No Edema
Skin: No Rash
Neuro: AOx3 conversant coherent
89M former smoker (quit 60 ys ago, smoked 11 year before quitting) HTN DM HLD CKD3 here for evaluation SOB suspect COPD exacerbation, never diagnosed with COPD before.
Acute hypoxic RI with exertional hypoxia to 84
Suspect COPD exacerbation, PNA unlikely with unremarkable PCT
- empiric IV CFTX discontinued
- Pulm eval appreciated azithromycin 3 days completed, treated with Duoneb and Budesonide (budesonide switched to Symbicort)
-tessalon perle and Robitussin DM prn cough
-CT chest appreciated, PE ruled out, stable 0.4 cm rt lung apex nodule, bibasilar atelectasis/scarring, mild cardiomegaly, coronary artery calcifications.
- Mucinex BID
- Supplementary O2 to keep POx > 94, consistently on room air, 01/05 PT eval appreciated no significant desaturation on ambulation though exertional dyspnea noted
- IV Decadron 4 mg q12h tapered to Prednisone 30 mg daily short taper planned
- DuoNebs qid and PRN
-ECHO appreciated preserved EF 65-70% no significant valve abn's or change from prior ECHO
-case mgmt consult appreciated home nebulizer machine and visiting nurse set up
-patient Education nebulizer machine symbicort use to be provided prior to discharge
Worsening hoarseness
-ENT eval requested for possible vocal cord pathology contributing to symptoms
Stable CKD3
monitor
Hypertension
- Stable
- cont home Lasix
DMT2
Risk of steroid induced hyperglycemia
- on LEAFLET DISTRIBUTOR PO Empagliflozin 25 mg PO DAILY
- on glimepiride 1 mg DAILY
- cont low dose sliding scale
HLD
- on Pravastatin 40 mg tablet 40 mg PO QPM
GERD
- HX PUD per patient.
- Continue daily PPI
PT eval appreciated Home services
DVT Px: LMWH
Full code
IP TLM
I spent a total of 45 minutes with the patient or on the floor. More than 50% of this time involved counseling and coordination of care.
Anticipated Discharge: Within 24 hours
Subjective/Interval History
-
Date of Service: January 06, 2025
Seen and examined at bedside in no acute distress resting comfortably in bed. Coughing and exertional dyspnea persists. worsening hoarseness noted.
Objective Data
-
Labs:
Laboratory Results
01/06/25
06:00
WBC Pending
Hgb Pending
Hct Pending
Plt Count Pending
Sodium Pending
Potassium Pending
Chloride Pending
Carbon Dioxide Pending
BUN Pending
Creatinine Pending
Glucose Pending
Calcium Pending
Vital Signs:
Vital Signs
Temp Pulse Resp BP Pulse Ox
98.5 F 79 18 104/55 96
01/05/25 23:15 01/05/25 23:15 01/05/25 23:15 01/05/25 23:15 01/05/25 23:15
I&O
01/04/25 01/05/25 01/06/25
06:59 06:59 06:59
Intake Total 1979 1280 / 1280 800 / 800
Balance 1979 1280 / 1280 800 / 800
[2025-01-06] MEDS: PULMICORT 0.5 MG INH (07:25)
[2025-01-06] MEDS: DUONEB 3 ML INH ×4 (07:26→19:13)
[2025-01-06 07:40] LABS: Hematocrit 34.4 % (39.0-52.0); Hemoglobin 11.2 g/dL (13.0-18.0); Mean Corp Hgb Conc. 32.6 g/dL (33.0-37.0); Mean Corpuscular Hgb 32.2 pg (27.0-31.0); Mean Corpuscular Volume 98.9 fL (80.0-94.0); Mean Platelet Volume 9.4 fL (7.4-10.4); Platelet Count 113 10^3/uL (130-400); Red Blood Cell Count 3.48 10^6/uL (4.70-6.10); Red Cell Dist. Width 14.5 % (11.5-14.5); White Blood Cell Count 4.8 10^3/uL (4.8-10.8)
[2025-01-06 07:41] VITALS: BP 127/67
[2025-01-06 07:52] LABS: Blood Urea Nitrogen 32 mg/dl (9-20); Carbon Dioxide 28 mmol/L (22-30); Chloride 105 mmol/L (98-107); Estimated Creatinine Clearance 40 ml/min; Glucose 131 mg/dl (70-99); Magnesium 2.8 mg/dl (1.6-2.3); Potassium 4.5 mmol/L (3.5-5.1); Sodium 142 mmol/L (135-145); eGFR 57.81
[2025-01-06 08:58] LABS: Glucose - Point of Care 115 mg/dl (70-99)
[2025-01-06] MEDS: MUCINEX 600 MG PO ×2 (09:40→20:57)
[2025-01-06] MEDS: NOVOLOG FLEXPEN-LOW RESISTANCE SC ×2 (09:40→12:46)
[2025-01-06] MEDS: FARXIGA 10 MG PO (09:41)
[2025-01-06] MEDS: PROTONIX 40 MG PO (09:41)
[2025-01-06] MEDS: ASPIR LOW (ENTERIC COATED) 81 MG PO (09:41)
[2025-01-06] MEDS: DELTASONE 30 MG PO (09:42)
[2025-01-06] MEDS: LASIX 20 MG PO (09:43)
[2025-01-06] MEDS: AMARYL 1 MG PO (09:44)
--- NOTE | 2025-01-06 10:24 | CM ---
Patient seen at bedside.
IMM explained & signed. In chart
CM consult completed for Nebulizer
Jenae liaison from [facility] ordering from [facility]
PLAN: home with [facility]
daughter to transport
[2025-01-06 11:00] LABS: Troponin I < 0.012 ng/ml
--- NOTE | 2025-01-06 11:20 | VNURNOTE ---
[employer]er met with patient and spoke to dgt Radha Stevenson via phone to discuss [facility] nurse/therapy, visits, schedule and homebound status. Patient is agreeable and understands that visits at home will be 2-3 x per week to assess and teach medical
management.
[facility] brochure provided with contact information. Patient is aware that [facility] will contact them for start of care after discharge from .
[facility] referral completed in [facility].
Nebulizer machine ordered from [facility]- receipt confirmed. Confirmed with [facility] Rep Emma that nebulizer machine can be delivered today. Patients dgt spoke to [facility] and requested neb be delivered to her home since it will need to be signed for and
her is home today. Original script for nebulizer placed on chart by nurse.
[2025-01-06 11:44] LABS: Glucose - Point of Care 144 mg/dl (70-99)
--- NOTE | 2025-01-06 13:42 | W.PN.PUL3 ---
Today's Communication / Plan
-
-Ok to discharge on Symbicort and PRN Albuterol
-Prednisone for 3 more days
-Out patient follow up with Pulmonary clinic
-If symptoms persist, will sent to ENT for laryngoscopy
Assessment
-
89-year-old gentleman with no known pulmonary disease who presents with cough going on for few weeks now. Patient is reporting some exertional dyspnea going on for many months with worse cough over the last 2 to 3 weeks. Patient does not recall any
sick contacts but reports that cough has been fairly worse over the last 3 weeks. He has been at times bringing small amount of expectoration without any hemoptysis. No pleuritic chest discomfort reported. No runny nose, sore throat or postnasal
drip reported. Patient traveled from [place] by road and was sitting in the car for multiple hours every day last week but reports that his symptoms have been going on before the trip.
Patient also was noted to have bronchospasm and has been treated with steroids and bronchodilators. Pulmonary consultation was requested for further recommendations.
Assessment and plan:
#1. Acute Bronchitis with suspected hyperactive airway disease. ?COPD. Remote h/o smoking in the past
-can switch to Symbicort BID and PRn Albuterol for d/c home
-CT without evidence of PE or pneumonia
#1a. Cough with voice change: Very suggestive of laryngitis.
-Currently treatment is supportive
-Trial of Tessalon pearls
-Continue Steroids
-Out patient follow up with Pulmonary clinic, if symptoms persist, will have ENT evaluate
#2. Pulmonary Nodule
-Patient had incidental finding of 4 mm nodule on the CT chest in 2021
-Stable on current CT
-No further work up needed
#3. Mild basilar fibrotic changes
-Minimal basilar scarring noted on the CT scan in the past, not consistent with UIP pattern
-Essentially unchanged on recent CT
-Patient will need pulmonary function testing with lung volumes DLCO assessment and 6-minute walk test as outpatient
-Will arrange outpatient pulmonary follow-up
#4. h/o Smoking
-Patient quit smoking about 60 years ago.
#5. Recent long travel from [place]. Reportedly symptoms started before the trip, involved multiple hours of sitting in the car
-CT PE negative for PE
Influenza screen, Legionella and Pneumococcal Ag negative
Data:
CT Chest 12/2024: No findings to confirm central pulmonary embolism.
0.4 cm right lung apex nodule, stable for greater than 2 years, considered benign
Bibasilar subsegmental atelectasis and/or scarring
Mild cardiomegaly, unchanged. Coronary artery calcifications again suspected.
CXR 12/2024: Subtle lower lobe fibrotic changes, otherwise unremarkable
ECHO 03/2021: Normal left ventricular systolic function. Normal RV
Left ventricular ejection fraction is 60-65%
Mild mitral regurgitation.
Mild aortic regurgitation.
Compared to the previous echo 11/13/18 there is no significant change.
CT Chest 09/2022: 1. There is no CT evidence of pulmonary embolism.
2. There is a new pulmonary nodule in the right upper lobe. (4 mm)
3. there are diffuse changes of COPD and probable fibrosis/scarring in the lung bases.
Total time spent on this consultation/encounter 30___ minutes which includes review of history, physical exam, medications, laboratory data, personal review of imaging, extensive review of outpatient records, discussion with care team and
respiratory therapy.
Subjective Data
-
Date of Service:
Date of Service: January 06, 2025
Subjective:
No wheezing this AM.
Review of Systems
Genitourinary: Other (Negative )
Objective Data
Data Reviewed
Vital Signs / I&O / Oxygen:
Vital Signs
Temp Pulse Resp BP Pulse Ox
97.7 F 84 16 127/67 97
01/06/25 07:41 01/06/25 11:21 01/06/25 11:21 01/06/25 09:43 01/06/25 08:30
Intake and Output
01/05/25 01/06/25 01/07/25
06:59 06:59 06:59
Intake Total 1280 / 1280 800 / 800
Balance 1280 / 1280 800 / 800
SaO2 97
Physical Exam
General: Comfortable
HEENT: Normocephalic
Cardiovascular: S1-S2
Respiratory: Clear, Non-Labored Respirations and Other (No wheezing or rhonchi this AM. )
GI: Soft and Non Distended
Neurology: Awake and Alert
Skin: Warm
Labs/Micro/Reports
Lab Data
01/06/25 06:52
01/06/25 06:52
Microbiology
01/03/25 21:02 Urine Legionella Urinary Antigen - Final
Negative for Legionella pneumophila Serogroup 1 antigen.
A negative result does not rule out the possiblity of
Legionella infection due to other serogroups or species of
Legionella. Clinical correlation is recommended.
01/03/25 21:02 Urine Streptococcus pneumoniae Antigen (M - Final
Negative for Streptococcus pneumoniae antigen.
A negative result does not exclude infection with
Streptococcus pneumoniae. Clinical correlation is
recommended.
01/03/25 15:36 Nasal Swab Influenza Types A & B (JUDSON) - Final
Negative for Influenza A & B, NAAT
Negative results must be combined with clinical observations
and patient history.
Nucleic Acid Amplification test (NAAT)performed on the
[employer] platform.
[2025-01-06] MEDS: TESSALON PERLES 200 MG PO (14:12)
[2025-01-06 15:58] VITALS: BP 110/67
[2025-01-06 16:06] LABS: Glucose - Point of Care 190 mg/dl (70-99)
--- NOTE | 2025-01-06 16:47 | CON.MD ---
Consultation - Medical
-
dictated.
There is no upper airway obstruction.
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
He does have thick, tacky mucous in his nose diffusely which could potentially be related to his cough.
I recommended copious saline spray, starting saline irrigations, flonase, continue guaifenesin. If persists I can restart an abx.
[2025-01-06] MEDS: NOVOLOG FLEXPEN-LOW RESISTANCE 1 UNITS SC (17:46)
[2025-01-06] MEDS: LOVENOX 40 MG SC (17:47)
[2025-01-06] MEDS: PRAVACHOL 40 MG PO (17:47)
[2025-01-06] MEDS: ROBITUSSIN DM 5 ML PO (17:54)
--- NOTE | 2025-01-06 18:21 | PTCARENOTE ---
Pt's daughter had brought to this RN's attention that the pt mentioned he had had a fall in the bathroom on 01/05 and neglected to tell anyone until now. Pt denies hitting his head. He said that the floor in the bathroom was slippery and when he went
to sit on the toilet, he slipped backward and hit his L upper back against the back of the toilet. Md notified at this time. Fall precautions in place. Will continue to monitor.
[2025-01-06] MEDS: SYMBICORT 80/4.5 MCG INHALER 2 PUFF INH (19:13)
[2025-01-06] MEDS: CLARITIN 10 MG PO (20:59)
[2025-01-06] MEDS: OCEAN, SALINE MIST 1 SPRAYS NASAL (21:06)
[2025-01-06 21:25] LABS: Glucose - Point of Care 207 mg/dl (70-99)
[2025-01-06 23:00] VITALS: BP 114/59
--- NOTE | 2025-01-07 06:08 | W.PN.HOSP.TC ---
Addendum entered and electronically signed by Disha Harry MD 01/08/25 18:12:
noted low Vitamin B12 lvl
Prescription for supplementation vit B12 1000 mcg daily for 30 days sent to patient's pharmacy
Daughter Radha, answering patient's calls at home, notified and aware.
Addendum entered and electronically signed by Disha Harry MD 01/07/25 11:21:
correction nasal congestion suspected allergic rhinitis, no post-nasal drip
Original Note:
Today's Communication/Plan
-
discharge
Assessment / Plan
Assessment / Plan
Physical Exam
General: No acute distress, appears comfortable
HEENT: NormoCephalic, Moist mucous membranes and Atraumatic
Respiratory: Clear to auscultation b/l, some improvement hoarseness noted
Cardiac: S1/S2 and Regular Rhythm; No Murmur or Rub
GI: Soft, Non Tender, Non Distended and Normal Bowel Sounds
Musculoskeletal: No Clubbing, No Cyanosis and No Edema
Skin: No Rash
Neuro: AOx3 conversant coherent
89M former smoker (quit 60 ys ago, smoked 11 year before quitting) HTN DM HLD CKD3 here for evaluation SOB suspect COPD exacerbation, never diagnosed with COPD before.
Acute hypoxic RI with exertional hypoxia to 84
Suspect COPD exacerbation, PNA unlikely with unremarkable PCT
- empiric IV CFTX discontinued
- Pulm eval appreciated azithromycin 3 days completed, treated with Duoneb and Budesonide (budesonide switched to Symbicort)
-tessalon perle and Robitussin DM prn cough
-CT chest appreciated, PE ruled out, stable 0.4 cm rt lung apex nodule, bibasilar atelectasis/scarring, mild cardiomegaly, coronary artery calcifications.
- Mucinex BID
- Supplementary O2 to keep POx > 94, consistently on room air, 01/05 PT eval appreciated no significant desaturation on ambulation though exertional dyspnea noted
- IV Decadron 4 mg q12h tapered to Prednisone 30 mg daily short taper planned
- DuoNebs qid and PRN
-ECHO appreciated preserved EF 65-70% no significant valve abn's or change from prior ECHO
-case mgmt consult appreciated home nebulizer machine and visiting nurse set up
-patient Education nebulizer machine symbicort use to be provided prior to discharge
Worsening hoarseness
-ENT eval appreciated no upper airway obstruction, hoarseness likely from presbylarynx dryness probably from vigorous coughing. Nasal congestion likely contributing to cough
-suspect allergic rhinitis/post-nasal drip contributing to cough
-continuing mucinex and prescribing Flonase on discharge (not available in hospital)
-patient's symptoms since improved with prn cough medications as above, normal saline nasal spray, and once Claritin
Mild pancytopenia
repeat CBC with primary in 1 week follow up recommended
Stable CKD3
monitor
Hypertension
- Stable
- cont home Lasix
DMT2
Risk of steroid induced hyperglycemia
- on [employer] PO Empagliflozin 25 mg PO DAILY
- on glimepiride 1 mg DAILY
- cont low dose sliding scale
HLD
- on Pravastatin 40 mg tablet 40 mg PO QPM
GERD
- HX PUD per patient.
- Continue daily PPI
PT eval appreciated Home services
DVT Px: LMWH
Full code
Medically stable for discharge home with home services and outpatient follow up recommendations.
discussed with patient and patient's daughter Radha
Total Time Preparing Discharge ___40____ minutes including examination of the patient, summary of the hospital stay, instructions for continuing care to all relevant caregivers; and preparation of discharge records, prescriptions, and referral
forms if necessary.
Anticipated Discharge: Today
Subjective/Interval History
-
Date of Service: January 07, 2025
notes improvement in symptoms. overall feels well. looking forward to going home.
Objective Data
-
Labs:
Laboratory Results
01/07/25
06:00
WBC Pending
Hgb Pending
Hct Pending
Plt Count Pending
Sodium Pending
Potassium Pending
Chloride Pending
Carbon Dioxide Pending
BUN Pending
Creatinine Pending
Glucose Pending
Calcium Pending
Vital Signs:
Vital Signs
Temp Pulse Resp BP Pulse Ox
98.3 F 80 16 114/59 96
01/06/25 23:00 01/06/25 23:00 01/06/25 23:00 01/06/25 23:00 01/06/25 23:00
I&O
01/05/25 01/06/25 01/07/25
06:59 06:59 06:59
Intake Total 1280 / 1280 800 / 800 1200 / 1200
Balance 1280 / 1280 800 / 800 1200 / 1200
[2025-01-07 06:51] LABS: Hematocrit 33.2 % (39.0-52.0); Hemoglobin 10.9 g/dL (13.0-18.0); Mean Corp Hgb Conc. 32.8 g/dL (33.0-37.0); Mean Corpuscular Hgb 32.4 pg (27.0-31.0); Mean Corpuscular Volume 98.8 fL (80.0-94.0); Mean Platelet Volume 9.6 fL (7.4-10.4); Platelet Count 116 10^3/uL (130-400); Red Blood Cell Count 3.36 10^6/uL (4.70-6.10); Red Cell Dist. Width 14.4 % (11.5-14.5); White Blood Cell Count 4.2 10^3/uL (4.8-10.8)
[2025-01-07 07:09] LABS: Blood Urea Nitrogen 29 mg/dl (9-20); Calcium 8.7 mg/dl (8.4-10.2); Carbon Dioxide 28 mmol/L (22-30); Chloride 105 mmol/L (98-107); Estimated Creatinine Clearance 40 ml/min; Glucose 102 mg/dl (70-99); Magnesium 2.6 mg/dl (1.6-2.3); Phosphorus 2.7 mg/dl (2.5-4.5); Potassium 4.3 mmol/L (3.5-5.1); Sodium 141 mmol/L (135-145); eGFR 57.81
[2025-01-07 07:10] VITALS: BP 127/71
[2025-01-07] MEDS: DUONEB 3 ML INH ×2 (07:19→11:27)
[2025-01-07] MEDS: SYMBICORT 80/4.5 MCG INHALER 2 PUFF INH (07:19)
[2025-01-07 08:03] LABS: Glucose - Point of Care 113 mg/dl (70-99)
[2025-01-07] MEDS: NOVOLOG FLEXPEN-LOW RESISTANCE SC ×2 (08:47→11:52)
[2025-01-07] MEDS: PROTONIX 40 MG PO (09:09)
[2025-01-07] MEDS: FARXIGA 10 MG PO (09:09)
[2025-01-07] MEDS: DELTASONE 30 MG PO (09:09)
[2025-01-07] MEDS: ASPIR LOW (ENTERIC COATED) 81 MG PO (09:09)
[2025-01-07] MEDS: LASIX 20 MG PO (09:10)
[2025-01-07] MEDS: AMARYL 1 MG PO (09:10)
[2025-01-07] MEDS: MUCINEX 600 MG PO (09:10)
[2025-01-07] MEDS: OCEAN, SALINE MIST 2 SPRAYS NASAL (09:11)
[2025-01-07] MEDS: TYLENOL 650 MG PO (10:37)
--- NOTE | 2025-01-07 11:24 | W.DCSUMMARY ---
Discharge Summary
Discharge Data
Date of Admission: 01/03/25
Date of Discharge: 01/07/25
-
Pending Results: Yes
Additional Pending Results:
B12 Folate Iron TIBC Ferritin
Discharge Plan
-
Patient Disposition: Home with Home Care
Discharge Diagnosis/Procedures: Chronic Obstructive Pulmonary Disease Exacerbation
nasal congestion, suspected allergic rhinitis
Chronic Kidney Disease Stage 3
Hypertension
Diabetes
Hyperlipidemia
GERD
Mild Pancytopenia
Benign right lung apex nodule 0.[address], stable for greater than 2 years
Condition: Fair
Diet: Low Cholesterol, 2 Gram Sodium and Diabetic, Carb Controlled
Activity: As tolerated
Driving Restrictions: As prior to admission
Bathing Restrictions: None
Blood Work: Repeat CBC in 1 week of discharge with primary care provider to follow up on mild pancytopenia
Activity Restrictions/Additional Instructions:
Follow up with primary care provider in 1 week of discharge and follow up with Pulmonology and ENT in 2-3 weeks of discharge.
Tessalon perles and Robitussin DM prescribed as needed for cough. Mucinex also prescribed for cough.
Flonase prescribed for nasal congestion suspected allergic rhinitis
Short Prednisone taper and Symbicort prescribed for COPD exacerbation
Please take medications as prescribed/recommended and follow up with primary care provider and/or other healthcare provider involved in your care for refills and/or further adjustment to your medication regimen as necessary.
Referrals:
Godwin Rivers MD [Active] - in two to three weeks (Needs full PFTs and 6 min walk test prior to appointment. )
Zachary Arrington DO [Family Provider] - in one week
Parker Banerjee MD [Active] - in two to three weeks
Prescriptions:
New
ipratropium-albuterol 0.5 mg-3 mg(2.5 mg base)/3 mL Solution For Nebulization
3 ml inhalation R Q4HPRN PRN (Reason: sob and wheeze) Qty: 180 0RF
guaifenesin 600 mg Tablet Extended Release 12hr
600 mg PO Q12 Qty: 14 0RF
dextromethorphan-guaifenesin 10-100 mg/5 mL Syrup
5 ml PO Q4HPRN PRN (Reason: cough) Qty: 1000 0RF
benzonatate 100 mg Capsule
200 mg PO TIDPRN PRN (Reason: cough) Qty: 60 0RF
prednisone 10 mg Tablet
30 mg PO DAILY 2 Days Qty: 6 0RF
fluticasone propionate [Flonase Allergy Relief] 50 mcg/actuation spray,suspension
2 spray intranasal DAILY PRN (Reason: nasal congestion) Qty: 16 0RF
budesonide-formoterol [Symbicort] 80-4.5 mcg/actuation HFA aerosol inhaler
2 puff inhalation BID 30 Days Qty: 10.2 0RF
Continued
pravastatin 40 MG tablet
40 mg PO QPM
furosemide 20 MG tablet
20 mg PO DAILY
aspirin 81 MG tablet,delayed release (DR/EC)
81 mg PO DAILY Qty: 30 0RF
Jardiance 25 mg Tablet
25 mg PO DAILY
glimepiride 1 mg Tablet
1 mg PO DAILY
pantoprazole 40 MG tablet,delayed release (DR/EC)
40 mg PO QPM
Discharge Orders:
Discharge Patient (As Directed); Ordered 01/07/25
Ordered By: Disha Harry
Discharge Date and Time
Print Language: SWEDISH
[2025-01-07 11:25] LABS: Glucose - Point of Care 144 mg/dl (70-99)
[2025-01-07] MEDS: ROBITUSSIN DM 5 ML PO (11:33)
[2025-01-07] MEDS: TESSALON PERLES 200 MG PO (11:36)
[2025-01-07 11:38] LABS: Iron 60 ug/dl (49-181)
[2025-01-07 11:47] LABS: Percent Saturation 23 % (20-50); Total Iron Binding Capacity 259 ug/dl (261-462)
--- NOTE | 2025-01-07 11:52 | CM ---
Patient seen at bedside with daughter
IMM signed yesterday
Confirmed nebulizer was delivered to daughter home
[facility] referral in careort accepted
PLAN: Home, [facility]
Daughter to transport
[2025-01-07 12:23] VITALS: BP 149/77
[2025-01-07 12:28] VITALS: PULSE 87; O2SAT 97
[2025-01-07 13:19] LABS: Folate 8.4 ng/ml (2.76-20); Vitamin B12 272 pg/ml (239-931)
== END 2025-01-07 14:02 | disposition home health service (06) | DRG 191 ==
LOC: 3 WEST ACU 16:19
PROVIDERS: Emergency Medicine; Physician Assistant Medical; ADMITTING PHYSICIAN Internal Medicine; ATTENDING PHYSICIAN Internal Medicine; CONSULT PHYSICIAN Internal Medicine; CONSULT PHYSICIAN Otolaryngology; EMERGENCY PHYSICIAN Emergency Medicine; FAMILY PHYSICIAN Family Medicine
DX: J44.1 Chronic obstructive pulmonary disease with (acute) exacerbation (principal); D61.818 Other pancytopenia; N18.30 Chronic kidney disease, stage 3 unspecified; I12.9 Hypertensive chronic kidney disease with stage 1 through stage 4 chronic kidney disease, or unspecified chronic kidney disease; E78.00 Pure hypercholesterolemia, unspecified; K21.9 Gastro-esophageal reflux disease without esophagitis; E11.22 Type 2 diabetes mellitus with diabetic chronic kidney disease; R91.1 Solitary pulmonary nodule; Z11.52 Encounter for screening for COVID-19; Z79.84 Long term (current) use of oral hypoglycemic drugs; Z87.891 Personal history of nicotine dependence; Z86.16 Personal history of COVID-19; Z87.01 Personal history of pneumonia (recurrent); Z79.82 Long term (current) use of aspirin; J30.9 Allergic rhinitis, unspecified; R09.02 Hypoxemia; Z85.46 Personal history of malignant neoplasm of prostate; Z79.899 Other long term (current) drug therapy; Z87.11 Personal history of peptic ulcer disease
CPT/HCPCS: 71046; 71275; 80048; 80053; 82607; 82728; 82746; 82962; 83036; 83540; 83550; 83735; 83880; 84100; 84145; 84484; 85025; 85027; 87449; 87502; 87811; 87899; 93005; 93306; 94640; 96374; 96375; 97116; 97162; 99285; Q9967